=== PATIENT | male | born 1985 | race Caucasian/White ===

== ENCOUNTER 2019-08-12 21:32 | Emergency (ER) | payer SELFPAY ==
--- NOTE | 2019-08-12 21:35 | PDOC ---
Rapid Medical Evaluation Time Seen by Provider: 08/12/19 21:33 Medical Evaluation: 08/12/19 21:34 HPI: L shoulder pain after a fall while playing baseball PE: No gross deficits ORDERS: left shoulder and clavicle x-rays Discharge Disposition - Diagnosis Injury of left shoulder - Referrals - Patient Instructions - Post Discharge Activity
[2019-08-12 21:39] VITALS: BP 114/84; PULSE 76; TEMP 98; BMI 31.4
[2019-08-12] MEDS ORDERED: KETOROLAC TROMETHAMINE 60 MG/2 ML VIAL IM ONE (22:09)
[2019-08-12] MEDS ORDERED: METHOCARBAMOL 500 MG TABLET PO ONE (22:09)
[2019-08-12] MEDS ORDERED: METHOCARBAMOL 500 MG TABLET ONE (22:11)
[2019-08-12] MEDS ORDERED: KETOROLAC TROMETHAMINE 60 MG/2 ML VIAL ONE (22:11)
--- NOTE | 2019-08-12 22:17 | PDOC ---
History of Present Illness - General Chief Complaint: Pain, Acute Stated Complaint: INJURY Time Seen by Provider: 08/12/19 21:33 History Source: Patient Exam Limitations: Clinical Condition - History of Present Illness Initial Comments: 08/12/19 21:47 Patient with no significant past medical history present with complaint of left shoulder pain status post injury while playing football this afternoon. Patient reported he was running and fell on the feeling hitting the left shoulder and feeling a popping sound. Patient reports severe pain to left shoulder with elevation of left arm and unable to elevate left shoulder. Patient reported left rotator cuff injury few months ago which he has not followed up. Denies numbness or tingling sensation. Denies any other symptoms Occurred: reports: just prior to arrival Past History - Past Medical History Allergies/Adverse Reactions: Allergies Allergy/AdvReac Type Severity Reaction Status Date / Time No Known Allergies Allergy Verified 08/12/19 21:51 Home Medications: Ambulatory Orders Ketorolac Tromethamine [Toradol] 10 mg PO Q6H PRN #28 tablet 08/12/19 Methocarbamol [Robaxin -] 500 mg PO TID #21 tablet 08/12/19 COPD: No CHF: No - Suicide/Smoking/Psychosocial Hx Smoking History: Unknown if ever smoked Have you smoked in the past 12 months: No Information on smoking cessation initiated: No Hx Alcohol Use: No Drug/Substance Use Hx: No Review of Systems - Review of Systems Able to Perform ROS?: Yes Is the patient limited [place] Citizen proficient: No Constitutional: Yes: Weakness (left shoulder) HEENTM: No: Symptoms Reported Respiratory: No: Symptoms reported Cardiac (ROS): No: Symptoms Reported Musculoskeletal: Yes: Symptoms Reported, See HPI, Joint Pain (left shoulder), Muscle Pain (left shoulder), Joint Stiffness (left shoulder) Integumentary: No: Symptoms Reported Neurological: No: Symptoms reported All Other Systems: Reviewed and Negative *Physical Exam - Vital Signs Last Vital Signs Temp Pulse Resp BP Pulse Ox 98.0 F 76 16 114/84 100 08/12/19 21:36 08/12/19 21:36 08/12/19 21:36 08/12/19 21:36 08/12/19 21:36 - Physical Exam Comments: 08/12/19 22:55 GENERAL: Well developed, well nourished. Awake and alert in moderate acute distress. PULMONARY: No evidence of respiratory distress. MUSCULOSKELETAL : Moderate tenderness to left anterior shoulder and over AC joint of left shoulder. No skin tenting. Negative left arm dropped test. No bony deformities . Decreased left arms and shoulder movement due to pain SKIN: Warm and dry. Normal capillary refill. No bruising or ecchymosis NEUROLOGICAL: Alert, awake, appropriate. No motor deficits in the lower extremities. Gait is normal without ataxia. PSYCHIATRIC: Cooperative. Good eye contact. Appropriate mood and affect. General Appearance: Yes: Nourished, Appropriately Dressed, Apparent Distress Medical Decision Making - Medical Decision Making 08/12/19 22:49 Patient with no significant past medical history present with complaint of left shoulder pain status post injury while playing football this afternoon. Patient reported he was running and fell on the feeling hitting the left shoulder and feeling a popping sound. Patient reports severe pain to left shoulder with elevation of left arm and unable to elevate left shoulder. Patient reported left rotator cuff injury few months ago which he has not followed up. Denies numbness or tingling sensation. Denies any other symptoms Exam significant for moderate tenderness over left AC joint and anterior left shoulder. Decreased left shoulder movement due to pain. Negative arm drop of left upper extremity. X-ray of left shoulder and clavicle shows AC separation of left shoulder. No fracture or dislocation of left shoulder. Toradol 60 mg IM and Robaxin 500 mg by mouth ordered for pain. Patient is placed in a sling for shoulder support and referred to orthopedics given for follow-up of AC joint separation *DC/Admit/Observation/Transfer Diagnosis at time of Disposition: Injury of left shoulder Qualifiers: Encounter type: initial encounter Qualified Code(s): S49.92XA - Unspecified injury of left shoulder and upper arm, initial encounter AC separation Qualifiers: Encounter type: initial encounter Laterality: left Qualified Code(s): S43.102A - Unspecified dislocation of left acromioclavicular joint, initial encounter - Discharge Dispostion Disposition: HOME Condition at time of disposition: Stable Decision to Admit order: No - Prescriptions Prescriptions: Ketorolac Tromethamine [Toradol] 10 mg PO Q6H PRN #28 tablet PRN Reason: shoulder pain Methocarbamol [Robaxin -] 500 mg PO TID #21 tablet - Referrals Referrals: Scout Saez DO [Staff Physician] - - Patient Instructions Printed Discharge Instructions: How to Use a Sling, Shoulder Dislocation, DI for AC Joint Separation Additional Instructions: Your x-ray are of left shoulder shows left AC joint separation. Use prescribed sling until orthopedics follow-up. Take prescribed medication as needed for pain. call and Follow-up with referred orthopedics in the morning for possible MRI and management of shoulder injury - Post Discharge Activity
[2019-08-12] MEDS ORDERED: NAPROXEN 500 MG TABLET (FP) PO ONE (22:18)
[2019-08-12] MEDS ORDERED: NAPROXEN 500 MG TABLET (FP) ONE (22:21)
== END 2019-08-12 22:23 | disposition home or self-care (01) ==
LOC: JERFT 21:32
PROC: 3E0233Z Introduction of Anti-inflammatory into Muscle, Percutaneous Approach (ICD-10-PCS; principal; 2019-08-12)
DX: S49.92XA Unspecified injury of left shoulder and upper arm, initial encounter (principal); S43.102A Unspecified dislocation of left acromioclavicular joint, initial encounter; W51.XXXA Accidental striking against or bumped into by another person, initial encounter; Y93.61 Activity, american tackle football; Y92.321 Football field as the place of occurrence of the external cause
CPT/HCPCS: 73000-TC-LT-FY; 73030-TC-LT-FY; 99282-25